=== PATIENT | male | born 1980 | race African-American/Black ===

== ENCOUNTER 2017-07-06 16:42 | Emergency (ER) | payer OTHER ==
[~2017-07-06] VITALS: Ht 182.9 cm; Wt 98.0 kg
[~2017-07-06 16:42] MED LIST: AMLO10TA80 PO; ATOR20TA65 PO; LOSA1TAB34 PO; METO100T5 PO
[2017-07-06] MEDS ORDERED: ONDANSETRON HCL 4MG/2ML VIAL IV STA (23:23)
[2017-07-06] MEDS ORDERED: SODIUM CHLORIDE 0.9% 1,000 ML IV ONE (23:23)
[2017-07-06] MEDS ORDERED: LORAZEPAM 2MG/ML CPJ IV ONE (23:30)
[2017-07-06 23:46] LABS: BASOPHILS % 0.4 % (0.0-2.0); EOSINOPHILS % 0.5 % (0.0-5.0); HEMATOCRIT. 37.8 % (42.0-52.0); HEMOGLOBIN. 13.1 g/dL (14.0-18.0); LYMPHOCYTES % 9.2 % (20.0-50.0); MEAN CORPUSCULAR HEMOGLOBIN 32.1 pg (28.0-32.0); MEAN CORPUSCULAR VOLUME 92.9 fL (80.0-94.0); MEAN PLATELET VOLUME 6.9 fl (7.4-10.4); NEUTROPHILS % 82.9 % (40.0-76.0); PLATELET 292 x1000/uL (130-400); RED BLOOD CELL COUNT 4.06 mill/uL (4.7-6.1); RED CELL DISTRIBUTION WIDTH 14.8 % (11.6-14.6)
[2017-07-06 23:54] LABS: CARBON DIOXIDE 28 mEq/L (21-32); CHLORIDE 99 mEq/L (98-107)
[2017-07-07 03:11] VITALS: BP 135/83
== END 2017-07-07 03:10 | disposition home or self-care (01) ==
LOC: ER 16:42
DX: F10.239 Alcohol dependence with withdrawal, unspecified (principal); I10 Essential (primary) hypertension; R00.0 Tachycardia, unspecified; R00.2 Palpitations; E78.00 Pure hypercholesterolemia, unspecified; Y90.9 Presence of alcohol in blood, level not specified
CPT/HCPCS: 36415; 71010; 80053; 83690; 85025; 93005; 96361; 96374; 96375; 99285; J2060; J2405; J7030; Z7610

== ENCOUNTER 2018-01-31 13:43 | Inpatient (IN) | payer OTHER ==
[~2018-01-31] VITALS: Ht 182.9 cm; Wt 98.0 kg
[~2018-01-31 13:43] MED LIST changes: +METO100T16 PO; -METO100T5 PO
[2018-01-31] MEDS ORDERED: SODIUM CHLORIDE 0.9% 1,000 ML IV ONE (14:32)
[2018-01-31 14:54] LABS: BASOPHILS % 0.6 % (0.0-2.0); HEMATOCRIT. 45.6 % (42.0-52.0); HEMOGLOBIN. 15.9 g/dL (14.0-18.0); LYMPHOCYTES % 16.1 % (20.0-50.0); MEAN CORPUSCULAR HEMOGLOBIN 32.2 pg (28.0-32.0); MEAN CORPUSCULAR VOLUME 92.2 fL (80.0-94.0); MEAN PLATELET VOLUME 6.8 fl (7.4-10.4); MONOCYTES % 10.8 % (2.0-8.0); NEUTROPHILS % 72.5 % (40.0-76.0); PLATELET 330 x1000/uL (130-400); RED BLOOD CELL COUNT 4.95 mill/uL (4.7-6.1); RED CELL DISTRIBUTION WIDTH 13.7 % (11.6-14.6)
[2018-01-31 15:00] LABS: CHLORIDE 97 mEq/L (98-107)
[2018-01-31] MEDS ORDERED: ONDANSETRON HCL 4MG/2ML VIAL IV ONE (15:00)
[2018-01-31] MEDS ORDERED: VERAPAMIL HCL 2.5 MG/1 ML 2ML VIAL IV ONE (15:00)
[2018-01-31 15:04] LABS: ETHANOL BLOOD < 10 mg/dL
[2018-01-31 15:05] LABS: INR 1.1; PARTIAL THROMBOPLASTIN TIME 26.4 sec (23.4-31.0); PROTHROMBIN TIME 11.3 sec (9.4-11.6)
[2018-01-31] MEDS ORDERED: MIDAZOLAM HCL 2 MG/2 ML VIAL IV ONE ×2 (15:15)
[2018-01-31] MEDS ORDERED: CHLORDIAZEPOXIDE 25MG CAPSULE PO ONE (15:15)
[2018-01-31] MEDS ORDERED: DEXT 5%/0.45% NACL 1000ML 1,000 ML IV SCH (16:00)
[2018-01-31] MEDS ORDERED: MORPHINE SULFATE 2 MG/ML CPJ (NOT FOR IM USE) IV PRN (18:45)
[2018-01-31] MEDS ORDERED: ONDANSETRON HCL 4MG/2ML VIAL IV PRN (18:45)
[2018-01-31 18:55] VITALS: BP 122/62
[2018-01-31] MEDS ORDERED: LABETALOL HCL 200 MG in DEXT 5% WATER 60 ML IV PRN (19:00)
[2018-01-31 20:00] VITALS: BP 151/99
[2018-01-31] MEDS ORDERED: MIDAZOLAM HCL 2 MG/2 ML VIAL IV PRN (20:30)
[2018-01-31] MEDS ORDERED: OMEP10SU2 PO (20:47)
[2018-01-31] MEDS ORDERED: ONDA4TAB5 PO (20:51)
[2018-01-31] MEDS ORDERED: FOLIC ACID 1 MG, THIAMINE HCL 100 MG, MVI, ADULT NO.1 10 ML in DEXTROSE 5% WATER 1,000 ML IV SCH ×4 (21:00)
[2018-01-31 22:00] VITALS: BP 149/101
[2018-01-31] MEDS ORDERED: ENOXAPARIN 40MG/0.4ML SYR SUBCUT SCH (22:00)
[2018-01-31] MEDS ORDERED: CHLORDIAZEPOXIDE 25MG CAPSULE PO SCH (22:00)
[2018-01-31] MEDS: METOPROLOL TARTRATE 50MG TABLET PO SCH (22:45)
[2018-01-31] MEDS: DILTIAZEM HCL 60MG TABLET PO SCH (22:46)
[2018-01-31] MEDS: CHLORDIAZEPOXIDE 25MG CAPSULE PO SCH (22:47)
[2018-02-01] VITALS (15 sets, daily range): BP systolic 126–144; BP diastolic 66–101
[2018-02-01] MEDS: DILTIAZEM HCL 60MG TABLET PO SCH ×3 (01:15→17:37)
[2018-02-01] MEDS ORDERED: SODIUM CHLORIDE 0.9% 1,000 ML IV SCH (05:00)
[2018-02-01] MEDS: CHLORDIAZEPOXIDE 25MG CAPSULE PO SCH ×3 (05:29→21:58)
[2018-02-01 07:21] LABS: HEMATOCRIT. 39.2 % (42.0-52.0); HEMOGLOBIN. 13.6 g/dL (14.0-18.0); MEAN CORPUSCULAR HEMOGLOBIN 32.3 pg (28.0-32.0); MEAN CORPUSCULAR VOLUME 92.9 fL (80.0-94.0); MEAN PLATELET VOLUME 7.2 fl (7.4-10.4); PLATELET 233 x1000/uL (130-400); RED BLOOD CELL COUNT 4.22 mill/uL (4.7-6.1); RED CELL DISTRIBUTION WIDTH 13.5 % (11.6-14.6)
[2018-02-01 07:54] LABS: CHLORIDE 96 mEq/L (98-107)
[2018-02-01 08:11] LABS: CLARITY URINE CLEAR (CLEAR); COLOR URINE YELLOW (YELLOW); KETONES URINE NEGATIVE (NEGATIVE); LEUKOCYTE ESTERASE URINE NEGATIVE (NEGATIVE); NITRITE URINE NEGATIVE (NEGATIVE); OCCULT BLOOD URINE NEGATIVE (NEGATIVE); PROTEIN URINE NEGATIVE (NEGATIVE)
[2018-02-01] MEDS: METOPROLOL TARTRATE 50MG TABLET PO SCH ×2 (08:19→21:15)
[2018-02-01] MEDS: ASPIRIN 81MG EC TABLET PO SCH (08:19)
[2018-02-01 08:40] LABS: *AMPHETAMINES SCREEN URINE NEGATIVE (NEGATIVE); *BARBITURATES SCREEN URINE NEGATIVE (NEGATIVE); *BENZODIAZEPINES SCREEN URINE PRESUMTIVE POSITIVE (NEGATIVE); *COCAINE SCREEN URINE NEGATIVE (NEGATIVE); CANNABINOID URINE SCREEN NEGATIVE (NEGATIVE); METHADONE URINE SCREEN NEGATIVE (NEGATIVE); PHENCYCLIDINE URINE SCREEN NEGATIVE (NEGATIVE)
[2018-02-01 08:50] LABS: OPIATES URINE SCREEN NEGATIVE (NEGATIVE)
[2018-02-01] MEDS ORDERED: ONDANSETRON HCL 4MG TABLET PO PRN (09:30)
[2018-02-01] MEDS ORDERED: LORAZEPAM 1MG TABLET PO PRN (09:30)
[2018-02-01] MEDS: MAGNESIUM OXIDE 400MG TABLET PO SCH (10:14)
[2018-02-01] MEDS ORDERED: POTASSIUM BICARB/CIT ACID 25 MEQ TABLET.EFF PO SCH (11:00)
[2018-02-01 13:57] LABS: PLATELET ESTIMATE NORMAL
[2018-02-02] VITALS: BP 139/102
[2018-02-02] MEDS: DILTIAZEM HCL 60MG TABLET PO SCH ×2 (00:23→09:42)
[2018-02-02 02:00] VITALS: BP 136/90
[2018-02-02 04:00] VITALS: BP 123/79
[2018-02-02] MEDS: CHLORDIAZEPOXIDE 25MG CAPSULE PO SCH (06:22)
[2018-02-02 08:00] VITALS: BP 136/64
[2018-02-02] MEDS: MAGNESIUM OXIDE 400MG TABLET PO SCH (09:40)
[2018-02-02] MEDS: ASPIRIN 81MG EC TABLET PO SCH (09:40)
[2018-02-02] MEDS: METOPROLOL TARTRATE 50MG TABLET PO SCH (09:41)
[2018-02-02 10:57] LABS: CHLORIDE 95 mEq/L (98-107)
[2018-02-02 11:34] VITALS: BP 136/64
== END 2018-02-02 12:10 | disposition home or self-care (01) | DRG 897 ==
LOC: ER 13:43 → 3WST 15:20 → EDBEDREQTM 15:22 → EDBEDREQ 15:22 → CANRESERV 16:46 → ENRESERV 16:46 → 6EST 02-02 03:35
PROVIDERS: ADMIT Internal Medicine Critical Care Medicine; ATTEND Internal Medicine Critical Care Medicine
DX: F10.239 Alcohol dependence with withdrawal, unspecified (principal); F10.220 Alcohol dependence with intoxication, uncomplicated; E87.2 Acidosis; E83.42 Hypomagnesemia; I11.9 Hypertensive heart disease without heart failure; I47.1 Supraventricular tachycardia; I48.92 Unspecified atrial flutter; E87.6 Hypokalemia; E78.5 Hyperlipidemia, unspecified; M10.9 Gout, unspecified; R74.0 Nonspecific elevation of levels of transaminase and lactic acid dehydrogenase [LDH]; Z90.49 Acquired absence of other specified parts of digestive tract; Z79.899 Other long term (current) drug therapy; Z83.3 Family history of diabetes mellitus
CPT/HCPCS: 36415; 71045; 80053; 80305; 81003; 83605; 83690; 83735; 83880; 84443; 84484; 85025; 85610; 85730; 86850; 86900; 87040; 87077; 87086; 87186; 93005; 93306; 96361; 96374; 96375; 99291; G0482; J1650; J2250; J2405; J3411; J3490; J7030; J7070

== ENCOUNTER 2021-03-09 03:56 | Inpatient (IN) | payer OTHER ==
[~2021-03-09] VITALS: Ht 182.9 cm; Wt 97.5 kg
[~2021-03-09 03:56] MED LIST changes: -ATOR20TA65 PO; +OMEP10SU2 PO; +ONDA4TAB5 PO
[2021-03-09] MEDS ORDERED: ONDANSETRON HCL 4MG/2ML INJ IV STA (04:33)
[2021-03-09] MEDS ORDERED: METOPROLOL TARTRATE 5MG/5ML VIAL IV SCH (04:45)
[2021-03-09] MEDS ORDERED: SODIUM CHLORIDE 0.9% 1,000 ML IV ONE (04:45)
[2021-03-09 05:15] LABS: BASOPHILS % 0.6 % (0.0-2.0); EOSINOPHILS % 0.8 % (0.0-5.0); HEMATOCRIT. 44.2 % (42.0-52.0); HEMOGLOBIN. 15.2 g/dL (14.0-18.0); LYMPHOCYTES % 15.8 % (20.0-50.0); MEAN CORPUSCULAR HEMOGLOBIN 32.9 pg (28.0-32.0); MEAN CORPUSCULAR VOLUME 95.8 fL (80.0-94.0); MEAN PLATELET VOLUME 7.3 fl (7.4-10.4); MONOCYTES % 8.8 % (2.0-8.0); PLATELET 425 x1000/uL (130-400); RED BLOOD CELL COUNT 4.62 mill/uL (4.7-6.1)
[2021-03-09 05:22] LABS: CHLORIDE 95 mEq/L (98-107)
[2021-03-09 05:26] LABS: ETHANOL BLOOD 12 mg/dL
[2021-03-09] MEDS ORDERED: SODIUM CHLORIDE 0.9% 1000ML BAG (SEPSIS BOLUS) IV ONE (08:00)
[2021-03-09] MEDS ORDERED: PIPERACILLIN/TAZ 3.375G PREMIX 50 ML IV ONE (08:30)
[2021-03-09] MEDS ORDERED: VANCOMYCIN 1 G PREMIX 200 ML IV SCH (08:30)
[2021-03-09 08:54] LABS: CLARITY URINE CLEAR (CLEAR); COLOR URINE YELLOW (YELLOW); KETONES URINE TRACE (NEGATIVE); LEUKOCYTE ESTERASE URINE TRACE (NEGATIVE); NITRITE URINE NEGATIVE (NEGATIVE); OCCULT BLOOD URINE NEGATIVE (NEGATIVE); PROTEIN URINE 2+ (NEGATIVE); SPECIFIC GRAVITY URINE 1.021 (1.005-1.030); UROBILINOGEN URINE 0.2 E.U./dL (0.2-1.0)
[2021-03-09 09:21] LABS: *AMPHETAMINES SCREEN URINE NEGATIVE (NEGATIVE); *BARBITURATES SCREEN URINE NEGATIVE (NEGATIVE); *BENZODIAZEPINES SCREEN URINE NEGATIVE (NEGATIVE); *COCAINE SCREEN URINE NEGATIVE (NEGATIVE); METHADONE URINE SCREEN NEGATIVE (NEGATIVE); OPIATES URINE SCREEN NEGATIVE (NEGATIVE)
[2021-03-09 09:22] LABS: CANNABINOID URINE SCREEN NEGATIVE (NEGATIVE); PHENCYCLIDINE URINE SCREEN NEGATIVE (NEGATIVE)
[2021-03-09] MEDS ORDERED: ONDANSETRON HCL 4MG/2ML INJ IV PRN ×2 (14:45→19:00)
[2021-03-09] MEDS ORDERED: DIPHENHYDRAMINE 50MG/ML VIAL IV PRN (19:00)
[2021-03-09] MEDS ORDERED: ACETAMINOPHEN 325MG TABLET PO PRN (19:00)
[2021-03-09] MEDS ORDERED: CLONIDINE 0.1MG TABLET PO PRN (19:00)
[2021-03-09] MEDS ORDERED: MVI, ADULT NO.1 10 ML, FOLIC ACID 1 MG, THIAMINE HCL 100 MG in SODIUM CHLORIDE 0.9% 1,0... IV SCH (19:30)
[2021-03-09] MEDS: DEXT 5%/0.45% NACL KCL 10MEQ/L 1,000 ML IV SCH (20:05)
[2021-03-09] MEDS: PANTOPRAZOLE SODIUM 40 MG/VIAL IV SCH (20:06)
[2021-03-09] MEDS: METOPROLOL TARTRATE 50MG TABLET PO SCH (21:00)
[2021-03-09] MEDS: ENOXAPARIN 30MG/0.3ML SYR SUBCUT SCH (21:05)
[2021-03-09] MEDS: AMLODIPINE 5MG TABLET PO SCH (21:05)
[2021-03-09 22:00] VITALS: BP 126/89
[2021-03-10] VITALS (7 sets, daily range): BP systolic 121–131; BP diastolic 81–94
[2021-03-10] MEDS: ACETAMINOPHEN 325MG TABLET PO PRN ×2 (00:37→01:45)
[2021-03-10] MEDS ORDERED: ATOR20TA65 PO (01:26)
[2021-03-10] MEDS ORDERED: AMI2 PO (01:26)
[2021-03-10 05:59] LABS: CHLORIDE 102 mEq/L (98-107)
[2021-03-10] MEDS: DEXT 5%/0.45% NACL KCL 10MEQ/L 1,000 ML IV SCH ×3 (06:04→16:40)
[2021-03-10 06:08] LABS: PHOSPHORUS 3.9 mg/dL (2.5-4.9)
[2021-03-10 06:22] LABS: BASOPHILS % 0.9 % (0.0-2.0); EOSINOPHILS % 3.3 % (0.0-5.0); HEMATOCRIT. 36.2 % (42.0-52.0); HEMOGLOBIN. 12.7 g/dL (14.0-18.0); LYMPHOCYTES % 24.7 % (20.0-50.0); MEAN CORPUSCULAR HEMOGLOBIN 34.2 pg (28.0-32.0); MEAN CORPUSCULAR VOLUME 97.3 fL (80.0-94.0); MEAN PLATELET VOLUME 7.7 fl (7.4-10.4); MONOCYTES % 8.7 % (2.0-8.0); NEUTROPHILS % 62.4 % (40.0-76.0); PLATELET 238 x1000/uL (130-400); RED BLOOD CELL COUNT 3.72 mill/uL (4.7-6.1); RED CELL DISTRIBUTION WIDTH 13.8 % (11.6-14.6)
[2021-03-10] MEDS ORDERED: PANTOPRAZOLE SODIUM 40 MG/VIAL IV SCH (09:00)
[2021-03-10] MEDS: PANTOPRAZOLE SODIUM 40 MG/VIAL IV SCH (09:21)
[2021-03-10] MEDS: METOPROLOL TARTRATE 50MG TABLET PO SCH (09:22)
[2021-03-10] MEDS: AMLODIPINE 5MG TABLET PO SCH (09:22)
[2021-03-10] MEDS: ENOXAPARIN 30MG/0.3ML SYR SUBCUT SCH (15:34)
== END 2021-03-10 21:00 | disposition home or self-care (01) | DRG 309 ==
LOC: ER 03:56 → 5WST 08:33 → EDBEDREQ 08:41 → ENRESERV 20:42
PROVIDERS: ADMIT Internal Medicine; ATTEND Internal Medicine
DX: I47.1 Supraventricular tachycardia (principal); E87.1 Hypo-osmolality and hyponatremia; M10.9 Gout, unspecified; R10.9 Unspecified abdominal pain; I10 Essential (primary) hypertension; K76.0 Fatty (change of) liver, not elsewhere classified; Z90.49 Acquired absence of other specified parts of digestive tract; Z79.899 Other long term (current) drug therapy
CPT/HCPCS: 36415; 71045; 76700; 80048; 80053; 80076; 80305; 80320; 81003; 83036; 83605; 83735; 83880; 84100; 84145; 84484; 85025; 93005; 99291; C9113; J1650; J2405; J2543; J3370; J3411; J3490; J7030; G0480

== ENCOUNTER 2022-05-08 06:21 | Inpatient (IN) | payer OTHER, MEDICAID ==
[~2022-05-08] VITALS: Ht 182.9 cm; Wt 96.0 kg
[~2022-05-08 06:21] MED LIST changes: +AMI2 PO; +ATOR20TA65 PO; -OMEP10SU2 PO; -ONDA4TAB5 PO
[2022-05-08] MEDS ORDERED: FAMOTIDINE 20MG/2ML VIAL IV STA (07:06)
[2022-05-08] MEDS ORDERED: ONDANSETRON HCL 4MG/2ML INJ IV STA (07:06)
[2022-05-08] MEDS ORDERED: SODIUM CHLORIDE 0.9% 1,000 ML IV ONE (07:15)
[2022-05-08] MEDS ORDERED: DIAZEPAM 5 MG/ML 2ML CPJ IV ONE ×3 (07:15→14:02)
[2022-05-08] MEDS ORDERED: ONDANSETRON 4MG ODT PO ONE (09:45)
[2022-05-08] MEDS ORDERED: DIAZEPAM 5 MG/ML 2ML CPJ IM ONE (09:45)
[2022-05-08] MEDS ORDERED: FAMOTIDINE 20MG TABLET PO ONE (09:45)
[2022-05-08 09:46] LABS: BASOPHILS % 0.8 % (0.0-2.0); EOSINOPHILS % 0.6 % (0.0-5.0); HEMATOCRIT. 39.7 % (42.0-52.0); HEMOGLOBIN. 13.6 g/dL (14.0-18.0); MEAN CORPUSCULAR HEMOGLOBIN 32.9 pg (28.0-32.0); MEAN CORPUSCULAR VOLUME 96.2 fL (80.0-94.0); MEAN PLATELET VOLUME 6.6 fl (7.4-10.4); MONOCYTES % 4.2 % (2.0-8.0); NEUTROPHILS % 75.4 % (40.0-76.0); PLATELET 319 x1000/uL (130-400); RED BLOOD CELL COUNT 4.13 mill/uL (4.7-6.1)
[2022-05-08 09:54] LABS: CHLORIDE 99 mEq/L (98-107)
[2022-05-08 09:55] LABS: INR 1.1; PROTHROMBIN TIME 11.3 sec (9.6-11.0)
[2022-05-08 10:02] LABS: ETHANOL BLOOD < 10 mg/dL
[2022-05-08 11:41] LABS: CLARITY URINE CLEAR (CLEAR); COLOR URINE DARK YELLOW (YELLOW); KETONES URINE 1+ (NEGATIVE); LEUKOCYTE ESTERASE URINE 1+ (NEGATIVE); NITRITE URINE NEGATIVE (NEGATIVE); OCCULT BLOOD URINE NEGATIVE (NEGATIVE); PROTEIN URINE 2+ (NEGATIVE); SPECIFIC GRAVITY URINE 1.022 (1.005-1.030)
[2022-05-08] MEDS ORDERED: CLONIDINE 0.1MG TABLET PO PRN (15:45)
[2022-05-08] MEDS ORDERED: MAGNESIUM/ALUMINUM HYDROXIDE/SIMETHICONE 30ML UDC PO PRN (15:45)
[2022-05-08] MEDS ORDERED: HYDROCODONE/ACETAMINOPHEN 5/325MG TABLET PO PRN (15:45)
[2022-05-08] MEDS ORDERED: DIAZEPAM 5 MG/ML 2ML CPJ IV PRN (15:45)
[2022-05-08] MEDS ORDERED: ONDANSETRON HCL 4MG/2ML INJ IV PRN (15:45)
[2022-05-08] MEDS ORDERED: ACETAMINOPHEN 325MG TABLET PO PRN ×2 (15:45)
[2022-05-08] MEDS ORDERED: GUAIFENESIN 200MG/10ML SUGAR FREE UDC PO PRN (15:45)
[2022-05-08] MEDS: ENOXAPARIN 30MG/0.3ML SYR SUBCUT SCH (17:56)
[2022-05-08] MEDS: THIAMINE HCL 100MG TABLET PO SCH (17:57)
[2022-05-09] VITALS (7 sets, daily range): BP systolic 118–146; BP diastolic 81–94
[2022-05-09] MEDS ORDERED: COLC0.6C3 MT (03:50)
[2022-05-09] MEDS ORDERED: GABA-532 PO (03:50)
[2022-05-09] MEDS ORDERED: ALLO300T2 PO (03:50)
[2022-05-09] MEDS: ENOXAPARIN 30MG/0.3ML SYR SUBCUT SCH (05:36)
[2022-05-09 07:35] LABS: BASOPHILS % 0.7 % (0.0-2.0); EOSINOPHILS % 1.6 % (0.0-5.0); HEMATOCRIT. 36.6 % (42.0-52.0); HEMOGLOBIN. 12.5 g/dL (14.0-18.0); MEAN CORPUSCULAR HEMOGLOBIN 33.2 pg (28.0-32.0); MEAN CORPUSCULAR VOLUME 97.5 fL (80.0-94.0); MEAN PLATELET VOLUME 7.1 fl (7.4-10.4); MONOCYTES % 7.8 % (2.0-8.0); NEUTROPHILS % 58.9 % (40.0-76.0); PLATELET 214 x1000/uL (130-400); RED BLOOD CELL COUNT 3.76 mill/uL (4.7-6.1); RED CELL DISTRIBUTION WIDTH 17.3 % (11.6-14.6)
[2022-05-09 07:37] LABS: CHLORIDE 96 mEq/L (98-107)
[2022-05-09 07:59] LABS: HDL CHOLESTEROL 40 mg/dL (40-59); LDL CHOLESTEROL 142 mg/dL (5-100); PHOSPHORUS 3.4 mg/dL (2.5-4.9); T4 FREE 0.97 ng/dL (0.76-1.46)
[2022-05-09] MEDS: THIAMINE HCL 100MG TABLET PO SCH (08:21)
[2022-05-09] MEDS ORDERED: METO-385 PO (16:30)
[2022-05-09] MEDS ORDERED: ASPI-1497 PO (16:30)
[2022-05-09] MEDS ORDERED: NALOXONE HCL 0.4MG/ML VIAL IV PRN (22:00)
== END 2022-05-09 19:10 | disposition home or self-care (01) | DRG 442 ==
LOC: ER 06:21 → 8WST 12:02 → SUPCPDRO 13:48 → ENRESERV 19:46
PROVIDERS: ADMIT Internal Medicine; ATTEND Internal Medicine
DX: K76.0 Fatty (change of) liver, not elsewhere classified (principal); F10.239 Alcohol dependence with withdrawal, unspecified; R16.0 Hepatomegaly, not elsewhere classified; E78.00 Pure hypercholesterolemia, unspecified; F41.9 Anxiety disorder, unspecified; I10 Essential (primary) hypertension; F12.90 Cannabis use, unspecified, uncomplicated; G62.9 Polyneuropathy, unspecified; M10.9 Gout, unspecified; R74.01 Elevation of levels of liver transaminase levels; Z87.891 Personal history of nicotine dependence; Z90.49 Acquired absence of other specified parts of digestive tract; Z79.82 Long term (current) use of aspirin
CPT/HCPCS: 36415; 80048; 80053; 80061; 80320; 81003; 83036; 83735; 83880; 84100; 84439; 84443; 85025; 93005; 99291; J1650; J7030; Q0162; G0480

== ENCOUNTER 2022-09-07 04:50 | Emergency (ER) | payer OTHER, MEDICAID ==
[~2022-09-07] VITALS: Ht 182.9 cm; Wt 90.0 kg
[~2022-09-07 04:50] MED LIST changes: +ALLO300T2 PO; -AMI2 PO; -AMLO10TA80 PO; +ASPI-1497 PO; -ATOR20TA65 PO; +GABA-532 PO; -LOSA1TAB34 PO; +METO-385 PO; -METO100T16 PO
[2022-09-07] MEDS ORDERED: LOSA1TAB34 MT (04:59)
[2022-09-07] MEDS ORDERED: ATOR20TA65 PO (04:59)
[2022-09-07] MEDS ORDERED: AMLO10TA80 PO (05:00)
[2022-09-07] MEDS ORDERED: ONDA4TAB50 PO (05:37)
[2022-09-07] MEDS ORDERED: ONDANSETRON HCL 4MG TABLET PO ONE (05:45)
[2022-09-07 05:47] VITALS: BP 124/75
== END 2022-09-07 05:45 | disposition home or self-care (01) ==
LOC: ER 04:50
DX: R11.2 Nausea with vomiting, unspecified (principal); I10 Essential (primary) hypertension; Z86.16 Personal history of COVID-19
CPT/HCPCS: 99283; Q0162

== ENCOUNTER 2025-10-01 18:17 | Inpatient (IN) | payer MEDICAID, OTHER ==
[~2025-10-01] VITALS: Ht 182.9 cm; Wt 98.4 kg
[~2025-10-01 18:17] MED LIST changes: +AMLO10TA80 PO; +ATOR20TA65 PO; +GABA-1180 PO; -GABA-532 PO; +LOSA1TAB34 MT; +ONDA4TAB50 PO
[2025-10-01 18:18] VITALS: O2SAT 98
[2025-10-01] MEDS ORDERED: ONDANSETRON HCL 4MG/2ML INJ IV ONE (18:45)
[2025-10-01] MEDS ORDERED: FAMOTIDINE 20MG/2ML VIAL IV ONE (18:45)
[2025-10-01] MEDS ORDERED: LORAZEPAM 2MG/ML UD SYRINGE IV NR (19:00)
[2025-10-01 21:11] LABS: BASOPHILS % 0.5 % (0.0-2.0); EOSINOPHILS % 0.1 % (0.0-5.0); HEMATOCRIT. 45.4 % (42.0-52.0); HEMOGLOBIN. 14.8 g/dL (14.0-18.0); LYMPHOCYTES % 18.6 % (20.0-50.0); MEAN PLATELET VOLUME 8.1 fl (7.4-10.4); MONOCYTES % 7.4 % (2.0-8.0); NEUTROPHILS % 73.4 % (40.0-76.0); PLATELET 242 x1000/uL (130-400); RED BLOOD CELL COUNT 4.97 mill/uL (4.7-6.1); RED CELL DISTRIBUTION WIDTH 15.0 % (11.6-14.6)
[2025-10-01 21:13] LABS: CREATININE 1.8 mg/dL (0.6-1.3)
[2025-10-01 21:14] LABS: ETHANOL BLOOD 186 mg/dL (<10); PROTEIN TOTAL 8.4 g/dL (6.0-8.3); UREA NITROGEN BLOOD 32 mg/dL (9-23)
[2025-10-01 21:15] LABS: ASPARTATE AMINOTRANSFERASE 38 IU/L (<34); BILIRUBIN DIRECT 0.2 mg/dL (<=3.0)
[2025-10-01 21:16] LABS: BILIRUBIN TOTAL 0.7 mg/dL (0.1-1.0)
[2025-10-01 21:20] LABS: INR 1.0
[2025-10-01] MEDS: ONDANSETRON HCL 4MG/2ML INJ IV SCH (22:00)
[2025-10-01] MEDS: SODIUM CHLORIDE 0.9% 1,000 ML IV ONE ×2 (22:00→22:08)
[2025-10-01] MEDS: FAMOTIDINE 20MG/2ML VIAL IV SCH (22:01)
[2025-10-01] MEDS: LORAZEPAM 2MG/ML UD SYRINGE IV NR (22:11)
[2025-10-01] MEDS ORDERED: IPRATROPIUM/ALBUTEROL 0.5-3(2.5)MG/3ML NEB HHN PRN (23:45)
[2025-10-01] MEDS ORDERED: ACETAMINOPHEN 325MG TABLET PO PRN (23:45)
[2025-10-01] MEDS ORDERED: CLONIDINE 0.1MG TABLET PO PRN (23:45)
[2025-10-02] VITALS (8 sets, daily range): BP systolic 126–144; BP diastolic 69–85; PULSE 84–130; RESP 15–20; TEMP 36.4–37.7; O2SAT 94–100
[2025-10-02] MEDS ORDERED: DEXTROSE 50% WATER 50ML SYRINGE IV PRN ×2 (01:15→08:15)
[2025-10-02] MEDS: PANTOPRAZOLE SODIUM 40 MG/VIAL IV SCH (01:44)
[2025-10-02] MEDS: ONDANSETRON HCL 4MG/2ML INJ IV PRN (01:44)
[2025-10-02] MEDS: MVI, ADULT NO.1 10 ML, FOLIC ACID 1 MG, THIAMINE HCL 100 MG in SODIUM CHLORIDE 0.9% 1,0... IV SCH (01:44)
[2025-10-02] MEDS ORDERED: LORAZEPAM 2MG/ML UD SYRINGE IV PRN (03:00)
[2025-10-02] MEDS ORDERED: SODIUM CHLORIDE 0.9% 1,000 ML IV SCH (03:15)
[2025-10-02 06:32] LABS: CREATININE 1.8 mg/dL (0.6-1.3); TRIGLYCERIDE 435.0 mg/dL (0-150); UREA NITROGEN BLOOD 36.0 mg/dL (9-23)
[2025-10-02 06:33] LABS: LDL CHOLESTEROL 109.0 mg/dL (5-100)
[2025-10-02 06:34] LABS: T4 FREE 1.06 ng/dL (0.89-1.76)
[2025-10-02 06:35] LABS: BASOPHILS % 0.2 % (0.0-2.0); EOSINOPHILS % 0.1 % (0.0-5.0); HEMATOCRIT. 40.4 % (42.0-52.0); HEMOGLOBIN. 13.3 g/dL (14.0-18.0); LYMPHOCYTES % 17.1 % (20.0-50.0); MEAN PLATELET VOLUME 8.0 fl (7.4-10.4); MONOCYTES % 11.5 % (2.0-8.0); NEUTROPHILS % 71.1 % (40.0-76.0); PLATELET 210 x1000/uL (130-400); RED BLOOD CELL COUNT 4.42 mill/uL (4.7-6.1); RED CELL DISTRIBUTION WIDTH 14.5 % (11.6-14.6)
[2025-10-02] MEDS: BLOOD SUGAR DIAGNOSTIC STRIP TEST SCH (06:45)
[2025-10-02] MEDS: GABAPENTIN 300MG CAPSULE PO SCH (07:01)
[2025-10-02] MEDS: LORAZEPAM 2MG/ML UD SYRINGE IV PRN (07:08)
[2025-10-02] MEDS: INSULIN LISPRO 100 UNITS/ML SUBCUT SCH (07:15)
[2025-10-02] MEDS: AMLODIPINE 5MG TABLET PO SCH (08:26)
[2025-10-02] MEDS: ENOXAPARIN 40MG/0.4ML SYR SUBCUT SCH (08:28)
[2025-10-02] MEDS: FOLIC ACID 1MG TABLET PO SCH (09:00)
[2025-10-02] MEDS: ALLOPURINOL 100 MG TABLET PO SCH (09:00)
[2025-10-02] MEDS: THIAMINE HCL 100MG TABLET PO SCH (09:00)
[2025-10-02] MEDS: ONDANSETRON HCL 4MG TABLET PO NR (09:30)
[2025-10-02 09:33] LABS: CLARITY URINE CLEAR (CLEAR); COLOR URINE YELLOW (YELLOW); GLUCOSE URINE NEGATIVE (NEGATIVE); KETONES URINE 3+ (NEGATIVE); LEUKOCYTE ESTERASE URINE NEGATIVE (NEGATIVE); NITRITE URINE NEGATIVE (NEGATIVE); OCCULT BLOOD URINE 1+ (NEGATIVE); PH URINE 6.0 (4.5-8.0); PROTEIN URINE 4+ (NEGATIVE); SPECIFIC GRAVITY URINE 1.021 (1.005-1.030); UROBILINOGEN URINE 0.2 E.U./dL (0.2-1.0)
[2025-10-02] MEDS: METOPROLOL TARTRATE 25MG TABLET PO SCH (09:52)
[2025-10-02 10:14] LABS: SQUAMOUS EPITHELIAL CELL URINE RARE /lpf (RARE/1+)
[2025-10-02 10:15] LABS: BACTERIA URINE TRACE; RBC URINE 0-2 /hpf (0-2); WBC URINE 0-2 /hpf (0-2)
[2025-10-02 10:35] LABS: SODIUM URINE RANDOM 44.0 mEq/L
[2025-10-02 10:42] LABS: *AMPHETAMINES SCREEN URINE NEGATIVE (NEGATIVE); *BARBITURATES SCREEN URINE NEGATIVE (NEGATIVE); *BENZODIAZEPINES SCREEN URINE PRESUMPTIVE POSITIVE (NEGATIVE); *COCAINE SCREEN URINE NEGATIVE (NEGATIVE); CREATININE URINE RANDOM 141.0 mg/dL; METHADONE URINE SCREEN NEGATIVE (NEGATIVE); OPIATES URINE SCREEN NEGATIVE (NEGATIVE); PHENCYCLIDINE URINE SCREEN NEGATIVE (NEGATIVE)
[2025-10-02 10:43] LABS: CANNABINOID URINE SCREEN PRESUMPTIVE POSITIVE (NEGATIVE); ECSTASY MDMA SCREEN URINE NEGATIVE (NEGATIVE)
[2025-10-02] MEDS ORDERED: BLOOD SUGAR DIAGNOSTIC STRIP TEST SCH (11:45)
[2025-10-02] MEDS ORDERED: INSULIN LISPRO 100 UNITS/ML SUBCUT SCH (12:15)
[2025-10-02] MEDS: SODIUM CHLORIDE 0.45% 1,000 ML IV SCH (12:22)
[2025-10-02 18:03] LABS: TROPONIN I HIGH SENSITIVITY 10 ng/L (3.0-53)
[2025-10-02] MEDS ORDERED: LORAZEPAM 1MG TABLET PO SCH (18:30)
[2025-10-02] MEDS: ATORVASTATIN CALCIUM 40MG TABLET PO SCH (20:22)
[2025-10-03] VITALS: BP 116/76; PULSE 89; RESP 17; TEMP 36.6; O2SAT 100
[2025-10-03 04:00] VITALS: BP 135/89; PULSE 107; RESP 18; TEMP 36.8; O2SAT 96
[2025-10-03 08:00] VITALS: BP 128/86; PULSE 104; RESP 18; TEMP 36.5; O2SAT 98
[2025-10-03 12:00] VITALS: BP 135/76; PULSE 98; RESP 18; TEMP 36.6; O2SAT 98
[2025-10-03 16:00] VITALS: BP 147/87; PULSE 91; RESP 18; TEMP 36.7; O2SAT 98
[2025-10-03] MEDS ORDERED: LORAZEPAM 0.5MG TABLET PO PRN (16:15)
[2025-10-03] MEDS: ONDANSETRON 4MG ODT PO SCH (17:19)
[2025-10-03 20:00] VITALS: BP 135/84; PULSE 86; RESP 18; TEMP 36.7; O2SAT 97
[2025-10-03] MEDS: ONDANSETRON HCL 4MG TABLET PO PRN (21:06)
[2025-10-04] VITALS (7 sets, daily range): BP systolic 115–148; BP diastolic 87–91; PULSE 81–108; RESP 16–20; TEMP 36.3–36.7; O2SAT 95–99
[2025-10-04] MEDS: ACETAMINOPHEN 325MG TABLET PO PRN (09:07)
[2025-10-04 12:06] LABS: BASOPHILS % 0.4 % (0.0-2.0); EOSINOPHILS % 1.1 % (0.0-5.0); HEMATOCRIT. 42.1 % (42.0-52.0); HEMOGLOBIN. 14.4 g/dL (14.0-18.0); LYMPHOCYTES % 32.1 % (20.0-50.0); MEAN PLATELET VOLUME 8.1 fl (7.4-10.4); MONOCYTES % 7.1 % (2.0-8.0); NEUTROPHILS % 59.3 % (40.0-76.0); PLATELET 166 x1000/uL (130-400); RED BLOOD CELL COUNT 4.71 mill/uL (4.7-6.1); RED CELL DISTRIBUTION WIDTH 14.4 % (11.6-14.6)
[2025-10-04 12:17] LABS: CREATININE 0.9 mg/dL (0.6-1.3)
[2025-10-04 12:18] LABS: UREA NITROGEN BLOOD 11 mg/dL (9-23)
[2025-10-04] MEDS ORDERED: THIA100T72 PO (16:54)
[2025-10-04] MEDS: POTASSIUM CHLORIDE 20MEQ/PACKET PO NR (20:04)
[2025-10-04] MEDS ORDERED: METOPROLOL TARTRATE 25MG TABLET PO SCH (21:00)
== END 2025-10-04 21:37 | disposition home or self-care (01) | DRG 392 ==
LOC: ER 18:17 → 5WST 21:37 → EDBEDREQ 21:46 → EDBEDREQTM 21:46 → ENRESERV 23:46
PROVIDERS: ADMIT Internal Medicine; ATTEND Internal Medicine
DX: K29.20 Alcoholic gastritis without bleeding (principal); R11.16 Cannabis hyperemesis syndrome; N17.9 Acute kidney failure, unspecified; I48.91 Unspecified atrial fibrillation; G62.9 Polyneuropathy, unspecified; F10.239 Alcohol dependence with withdrawal, unspecified; I11.9 Hypertensive heart disease without heart failure; F32.A Depression, unspecified; K76.0 Fatty (change of) liver, not elsewhere classified; E78.00 Pure hypercholesterolemia, unspecified; F41.9 Anxiety disorder, unspecified; K21.9 Gastro-esophageal reflux disease without esophagitis; M10.9 Gout, unspecified; R73.9 Hyperglycemia, unspecified; Y90.6 Blood alcohol level of 120-199 mg/100 ml; I49.3 Ventricular premature depolarization; R73.03 Prediabetes; Z79.82 Long term (current) use of aspirin; Z79.899 Other long term (current) drug therapy; Z90.49 Acquired absence of other specified parts of digestive tract
CPT/HCPCS: 36415; 74176; 76770; 80048; 80061; 80076; 80305; 80320; 81003; 82570; 82962; 83036; 83735; 83935; 84300; 84439; 84443; 84484; 84550; 85025; 86850; 86900; 93005; 93306; 96361; 96374; 99285; A4606; J1308; J1650; J2060; J2405; J2470; J3411; J3490; J7030; Q0162; G0480